=== PATIENT | female | born 1995 | race African-American/Black ===

== ENCOUNTER 2018-07-24 18:04 | Emergency (ER) | payer OTHER ==
[~2018-07-24] VITALS: Ht 167.6 cm; Wt 68.9 kg
[2018-07-24 18:06] VITALS: Ht 167.6 cm; Wt 68.9 kg
[2018-07-24 20:15] VITALS: BP 132/83
== END 2018-07-24 20:15 | disposition home or self-care (01) ==
LOC: ED 18:04
DX: R47.01 Aphasia (principal); R25.1 Tremor, unspecified; F31.9 Bipolar disorder, unspecified; Z88.8 Allergy status to other drugs, medicaments and biological substances